=== PATIENT | male | born 1955 | race Caucasian/White ===

== ENCOUNTER 2016-10-04 04:31 | Emergency (ER) | payer OTHER ==
[~2016-10-04] VITALS: Ht 185.4 cm; Wt 128.6 kg
[~2016-10-04 04:31] MED LIST: AMLO5TAB4 PO; CLON2TAB16; CLON2TAB2 PO; DIAZ2TAB3 PO; FLUO40CA2 PO; FLUO40CA9; FLUO40CA9 PO; FLUT1DIS3 INH; GABA800T2 PO; GLIM1TAB PO; HYDR-3307; HYDR-3307 PO; LEVO750T26 PO; MELO-184 PO; METO100T5 PO; MORP30TA81 PO; Norvasc PO; OXYC-229 PO; POLY17PO5 PO; TRAM50TA2 PO; metoprolol PO
[2016-10-04 04:33] VITALS: BP 127/75
[2016-10-04] MEDS ORDERED: METF500T4 PO (04:56)
[2016-10-04] MEDS ORDERED: IBUPROFEN 200 MG TABLET ONE (05:25)
[2016-10-04] MEDS ORDERED: IBUPROFEN 200 MG TABLET PO ONE (05:30)
== END 2016-10-04 07:05 | disposition home or self-care (01) ==
LOC: ED 06:11
DX: S83.412A Sprain of medial collateral ligament of left knee, initial encounter (principal); E11.9 Type 2 diabetes mellitus without complications; K21.9 Gastro-esophageal reflux disease without esophagitis; I10 Essential (primary) hypertension; W10.9XXA Fall (on) (from) unspecified stairs and steps, initial encounter; Y93.01 Activity, walking, marching and hiking; Y92.009 Unspecified place in unspecified non-institutional (private) residence as the place of occurrence of the external cause; Y99.9 Unspecified external cause status
CPT/HCPCS: 99284

== ENCOUNTER 2018-11-16 00:57 | Emergency (ER) | payer MEDICARE, OTHER ==
[~2018-11-16] VITALS: Ht 185.4 cm; Wt 116.0 kg
[~2018-11-16 00:57] MED LIST changes: -CLON2TAB2 PO; +CLON2TAB9 PO; -GABA800T2 PO; +GABA800T5 PO; -MELO-184 PO; +MELO15TA24 PO; +METF500T17 PO; -OXYC-229 PO; +OXYC-307 PO
[2018-11-16] MEDS ORDERED: ONDANSETRON 2MG/ML, 2ML IVPush ONE (02:00)
[2018-11-16] MEDS ORDERED: MORPHINE SULFATE 4 MG/ML, 1ML IVPush PRN (02:00)
[2018-11-16] MEDS ORDERED: SODIUM CHLORIDE FLUSH 10ML SYR IVF ONE (02:00)
--- NOTE | 2018-11-16 02:10 | NUR ---
PT IN GOWN IN [facility]. PT ATTACHED TO VS MONITORS. VSS AT THIS TIME. IV ACCESS ESTABLISHED. KAMALA, MED STUDENT AT FOR PT HISTORY AND ASSESSMENT. PT URINE AND BLOOD COLLECTED AND SENT TO LAB. ALL QUESTIONS ANSWERED. PT DECLINES WARM BLANKET AT THIS TIME AND HAS CALL LIGHT WITHIN REACH.
[2018-11-16 02:29] LABS: BASOPHILS # (AUTO) 0.02 x10^3/uL (0-0.1); BASOPHILS % (AUTO) 0 % (0-1); EOSINOPHILS # (AUTO) 0.06 x10^3/uL (0-0.4); EOSINOPHILS % (AUTO) 1 % (1-7); LYMPHOCYTES # (AUTO) 1.19 x10^3/uL (1-3.4); LYMPHOCYTES % (AUTO) 25 % (22-44); MD NO; MEAN CORPUSCULAR HGB CONC 32.6 g/dL (33.2-36.2); MEAN CORPUSCULAR VOLUME 85.7 fL (81-97); MEAN PLATELET VOLUME 6.6 fL (7.4-10.4); MONOCYTES # (AUTO) 0.49 x10^3/uL (0.2-0.8); MONOCYTES % (AUTO) 10 % (2-9); NEUTROPHILS % (AUTO) 63 % (42-75); PLATELET COUNT 247 x10^3/uL (130-400); RED BLOOD COUNT 5.06 x10^6/uL (4.38-5.82); RED CELL DISTRIBUTION WIDTH 13.5 % (9.4-14.8)
[2018-11-16] MEDS ORDERED: MORPHINE SULFATE 4 MG/ML, 1ML ONE (02:34)
[2018-11-16] MEDS ORDERED: ONDANSETRON 2MG/ML, 2ML ONE (02:34)
[2018-11-16 02:39] LABS: ALBUMIN 3.7 g/dL (3.4-5.0); ANION GAP 7 mmol/L (5-15); CALCIUM 9.2 mg/dL (8.5-10.1); CHLORIDE 102 mmol/L (98-107)
[2018-11-16 02:41] LABS: MICROSCOPIC AUTO
--- NOTE | 2018-11-16 02:41 | NUR ---
PT MEDICATED FOR PAIN/NAUSEA PER MAR.
[2018-11-16 02:42] LABS: ALANINE AMINOTRANSFERASE 31 U/L (12-78); ALKALINE PHOSPHATASE 130 U/L (45-117); BILIRUBIN,TOTAL 0.7 mg/dL (0.2-1.0); CREATININE 0.86 mg/dL (0.7-1.3); TOTAL PROTEIN 7.3 g/dL (6.4-8.2)
[2018-11-16 02:44] LABS: CULTURE INDICATED? NO
--- NOTE | 2018-11-16 03:44 | NUR ---
PT RESTING COMFORTABLY IN BED AT THIS TIME; NADN. PT DENIES ANY NEEDS. PT HAS CALL LIGHT WITHIN REACH.
[2018-11-16 04:40] VITALS: BP 171/89
--- NOTE | 2018-11-16 04:40 | NUR ---
PT D/C WITH D/C SUMMARY AND SCRIPTS. ALL QUESTIONS ANSWERED. PT IV D/C WITH TIP INTACT. PT DENIES ANY OTHER NEEDS PERTAINING TO THIS VISIT. PT AMBULATES TO REGISTRATION DESK WITH STEADY GAIT FOR D/C HOME.
[2018-11-16] MEDS ORDERED: OMNIPAQUE 350 MG/ML, 100ML BOTTLE ONE (05:57)
== END 2018-11-16 04:43 | disposition home or self-care (01) ==
LOC: ED 04:37
DX: N20.2 Calculus of kidney with calculus of ureter (principal); K57.30 Diverticulosis of large intestine without perforation or abscess without bleeding; E11.65 Type 2 diabetes mellitus with hyperglycemia; K83.9 Disease of biliary tract, unspecified; I10 Essential (primary) hypertension
CPT/HCPCS: 36415; 74177; 80053; 81001; 83690; 85025; 93005; 96374; 96375; 99284; J2270; J2405; Q9967